=== PATIENT | male | born 1960 | race Caucasian/White ===

== ENCOUNTER → 2017-06-04 | Day surgery (SDC) | payer OTHER ==
[2017-06-04] VITALS (29 sets, daily range): BP systolic 114–149; BP diastolic 59–87; PULSE 78–97; RESP 14–29; Ht 185.4 cm; Wt 107.0 kg
[~2017-06-04] VITALS: Ht 185.4 cm; Wt 107.0 kg
[~2017-06-04] MED LIST: ACETAMINOPHEN 325 MG TAB PO PRN; AL HYDROX/MG HYDROX/SIMETH 30 ML CUP PO PRN; AMLO1POW3 MC; ASPI-664 PO; ATOR10TA65 PO; BENA20TA48 PO; CHOL200073 PO; DIAZEPAM 5 MG TAB PO SCH; DIPHENHYDRAMINE 50 MG CAP PO SCH; DULA1.5P SQ; EMPA25TA PO; FAMOTIDINE 20 MG TAB PO SCH; FENTAnyl 50 MCG/ML VIAL ONE; GABA300S PO; HEPARIN 1000 UNITS/ML 10 ML INJ ONE; HYDR-3605 PO; HYDR25TA6 PO; INSU100I7 SQ; IODIXANOL LOCM 100 ML BTL ONE; LIDOCAINE 1% (MDV) 20 ML INJ ONE; METF1000 PO; MIDAZOLAM 1 MG/ML 2 ML INJ ONE; NITR0.6T5 SL; NITROGLYCERIN (IC) 100 MCG/ML INJ ONE; ONDANSETRON 4 MG INJ IV PRN; PROP10TA6 PO; SOD CHLORIDE 0.45% 1,000 ML IV SCH; SOD CHLORIDE 0.9% 1,000 ML IV SCH; TAMS0.4C2 PO; TEST200V19 IM; TS100V10 IM; VERAPAMIL 5 MG INJ ONE; morphine 2 MG INJ IV PRN
[2017-06-04 07:57] LABS: BASOPHILS % 0.2 % (0.0-2.0); HEMATOCRIT 42.5 % (42.0-52.0); HEMOGLOBIN 14.6 g/dl (14.0-18.0); LYMPHOCYTES # 1.2 10^3/ul (0.8-2.9); LYMPHOCYTES % 9.8 % (15.0-51.0); MEAN CORPUSCULAR HEMOGLOBIN 29.6 pg (29.0-33.0); MEAN CORPUSCULAR HGB CONC 34.4 g/dl (32.0-37.0); MEAN PLATELET VOLUME 12.2 fl (7.4-10.4); MONOCYTE # 0.8 10^3/ul (0.3-0.9); MONOCYTES % 6.9 % (0.0-11.0); NEUTROPHIL # 9.9 10^3/ul (1.6-7.5); NEUTROPHILS % 82.5 % (39.0-77.0); PLATELET COUNT 171 10^3/UL (140-415); RED BLOOD COUNT 4.94 10^6/ul (4.70-6.10); RED CELL DISTRIBUTION WIDTH 12.7 % (11.5-14.5)
[2017-06-04 08:15] LABS: CHOL/HDL RATIO 3.7 RATIO
[2017-06-04 08:18] LABS: CALCIUM 9.6 mg/dl (8.4-10.2); CREATININE 0.91 mg/dl (0.61-1.24); POTASSIUM 4.2 mmol/L (3.5-5.1)
--- NOTE | 2017-06-04 08:22 | RADRPT ---
PROCEDURE: XR Chest. CLINICAL INDICATION: Chest pain. TECHNIQUE: AP Portable chest. COMPARISON: None available FINDINGS: The soft tissues and bones are normal. No focal infiltrates, masses, or effusions are noted. The m ediastinum and heart are normal. No pneumothorax is present. IMPRESSION: 1. No radiographic evidence for acute cardiopulmonary disease RPTAT: HD .Earline Woody MD, MD Date Time Electronically viewed and signed by .Earline Woody MD, on 06/04/2017 08:22 .C/
[2017-06-04 08:38] LABS: INR 0.99; PROTIME 13.2 Sec (11.9-14.9)
[2017-06-04 08:39] LABS: PARTIAL THROMBOPLASTIN TIME 26.4 Sec (25.0-35.0)
--- NOTE | 2017-06-04 10:10 | SIPON ---
Date/Time of Note Date/Time of Note DATE: 06/04/17 TIME: 10:06 Operative Report Preoperative Diagnosis 1.Chest pain 2.abnl mpi Postoperative Diagnosis 1.non-obstructive cad Operation/Procedure Performed 1.[facility] Surgeon see signature line assistant vice president 1.[facility] Anesthesia: moderate sedation Estimated blood loss: minimal Transfusion Required none Specimen NA Grafts/Implants none Complications none JANAE ALVAREZ Jun 04, 2017 10:10
--- NOTE | 2017-06-04 23:38 | CARRPT ---
DATE OF PROCEDURE: 06/04/2017 TYPE OF PROCEDURE: 1. Left heart catheterization. 2. Coronary angiography. 3. Measurement of left ventricular end-diastolic pressure. ATTENDING PHYSICIAN: Janae Brown MD REFERRING PHYSICIAN: Shay Baker M.D. INDICATION: Chest pain with positive stress test findings for ischemia. TYPE OF ANESTHESIA: Conscious and local. BRIEF HISTORY: Mr. Dunham is a 57-year-old male with history of hypertension, diabetes mellitus, d yslipidemia who initially had complaints of substernal chest pain. The patient subsequently had a c ardiac stress test showing positive ischemia in anterior and inferior distribution. Given these fin dings, the patient referred for and presents today in order to undergo left heart catheterization to assess for the possibility of significant obstructive coronary artery disease, symptoms of chest pa in and subsequent positive stress test findings. PROCEDURE: After informed consent was obtained, the patient was brought to the [facility] cardiac catheterization lab where his right radial area was prepped and draped in the usual sterile fashion. Lidocaine 2% was infiltrated into the right radial area in order to achieve adequ ate anesthesia. Using modified Seldinger technique, the radial artery was cannulated and a 6-Kosovan arterial sheath was placed. A 6-Kosovan JL3.5 catheter was used to cannulate the left main coronary ostium with contrast injection, multiple views of the left coronary arterial system were obtained. JL3.5 was removed over a guidewire and a JR4 was used to cannulate the right coronary arterial osti um. With contrast injection, multiple views of the right coronary artery was obtained. JR4 was rem christiane over a guidewire and a 6-Kosovan pigtail was passed down the ascending aorta into the LV and lef t ventricular end-diastolic pressure was measured, pulled back across the aortic valve to assess for significant gradient, which there was not and removed. Subsequently, the patient's sheath was hazel destini, this concluded the procedure. TR band was applied. There were no noted complications. FINDINGS: CORONARY ANGIOGRAPHY: Left main 4 mm, no significant stenoses. LAD proximally is a 3.5 mm vessel i n its mid portion, has approximately a 40% stenosis. The remainder of the LAD is free from focal st enosis throughout the apex, mid branching diagonal 2 mm vessel with no significant focal stenoses. The circumflex proximally was a 3.5 mm vessel and had no significant focal stenosis throughout its e ntirety. There is a mid branching obtuse marginal 3 mm vessel with no significant focal stenoses. The right coronary artery proximally is a 2.5 mm vessel and has no significant focal stenosis throug hout its entirety. The dominant vessel gives off a 2 mm PDA and a 2.5 mm posterolateral branch, eac h with no significant focal stenoses. MEASUREMENTS: Left ventricular end-diastolic pressure 23 to 24, no significant aortic stenosis by g radient. TOTAL FLUOROSCOPY TIME: 3.8 minutes. TOTAL CONTRAST: 63 mL. IMPRESSION: 1. Mild to moderate nonobstructive and coronary artery disease primarily involving a mid LAD lesion . 2. Elevated left heart filling pressures. 3. No significant aortic stenosis by gradient. RECOMMENDATIONS: In light of procedure findings at this time would: 1. Maximize medical management. 2. Aggressive risk factor reduction. 3. The patient will be readmitted to same day surgery center for post-catheterization observation a nd continued management of presenting symptoms with probable discharge later this afternoon. Dictated By: JANAE MOTT/CARRIE Conf#: [id number] DID#: [id number] CC: SHAY BAKER MD;*EndCC*
--- NOTE | 2017-06-05 18:51 | RADRPT ---
Vent Rate: 87 bpm RR Interval: 0 msec CA Interval: 180 msec QRS Duration: 98 msec QT Interval: 354 msec QTC Interval: 425 msec P-R-T Marble: 58 - 34 - 61 degrees Normal sinus rhythm Nonspecific T wave abnormality Abnormal ECG Electronically Signed By: Kamran Viera [id number]
== END | disposition home or self-care (01) ==
LOC: SDS 06:51
PROVIDERS: ATTEND Internal Medicine
DX: I25.10 Atherosclerotic heart disease of native coronary artery without angina pectoris (principal); I10 Essential (primary) hypertension; E11.9 Type 2 diabetes mellitus without complications; E78.5 Hyperlipidemia, unspecified
CPT/HCPCS: 71010; 80048; 80061; 82962; 85025; 85610; 85730; 93005; 93458; C1887; J1644; J2250; J3010; Q9967; Z7610